=== PATIENT | male | born 1955 | race Caucasian/White ===

== ENCOUNTER → 2017-04-10 | Outpatient (CLI) | payer MEDICARE ==
[~2017-04-10] MED LIST: CRESTOR20 MG PO; LISINOPRIL-HYDR1 TAB PO; NEURONTIN600 MG PO; OXYCODONE HYDRO10 M2 PO; TOPROL XL 100M100 MG PO; VALIUM 5MG TABLE5 MG PO
[2017-04-10 16:55] LABS: AMPHETAMINES/METAMPHETAMINES NEGATIVE ng/mL (<1000)
== END ==
LOC: LAB 16:24
PROVIDERS: Emergency Medicine
DX: Z79.899 Other long term (current) drug therapy (principal)

== ENCOUNTER → 2017-05-15 | Outpatient (CLI) | payer MEDICARE ==
--- NOTE | 2017-05-17 16:24 | RADIOLOGY REPORT PS360 ---
History and Indications: Coronary artery disease, previous bypass surgery, hypertension, hyperlipidemia, tobacco use, family history and shortness of breath Procedure: Patient exercised on Jay protocol 7 minutes, resting heart rate was 52 bpm, resting blood pressure 158/76, with exercise maximum heart rate achieved was 108 bpm, which is equal to 69% of the maximum predicted heart rate and a blood pressure was 225/94. Test was started due to shortness of breath, patient denied any complained of chest pain. Patient has adequate exercise capacity achieved 7.7mets of workload on treadmill, the blood pressure response to exercise was hypertensive. Electrocardiogram: Resting electrocardiogram showed sinus bradycardia rightward axis, with exercise there is less than 1.[address] segment depression noted from the baseline EKG. The EKG portion of the exercise Myoview is nondiagnostic as patient did not achieve the target heart rate. Cardiac stress and resting SPECT images: Cardiac stress and resting SPECT images were obtained using technetium 99 Myoview 10.5 mCi at rest and 32.0 mCi at stress, gated SPECT further analysis of segmental wall motion and calculation of the ejection fraction also done. Cardiac stress and rest images show decreased tracer activity in the anteroseptal and inferolateral wall which improves on the resting images suggestive of reversible ischemia. Computer derived ejection fraction is 61% with no obvious regional wall motion abnormality, right ventricle is mildly enlarged with normal contractility. Conclusion: 1. The EKG portion of the exercise Myoview is nondiagnostic as patient did not achieve the target heart rate, patient has adequate exercise capacity achieved 7.7mets of workload on treadmill, the blood pressure response to exercise was hypertensive. The test was stopped due to shortness of breath, patient denied any complained of chest pain. 2. Scintigraphic evidence of mild reversible ischemia involving the anteroseptal and inferolateral wall. Computer derived ejection fraction is extremely 61% with no obvious regional wall motion abnormality, right ventricle is mildly enlarged with normal contractility. 3. Abnormal exercise Myoview study.
== END ==
LOC: RAD 04-25 06:30
DX: R06.02 Shortness of breath (principal)
CPT/HCPCS: A9502

== ENCOUNTER → 2017-05-29 | Outpatient (CLI) | payer MEDICARE ==
[2017-05-29 08:54] LABS: LYMPH # 3.8 K/mm3 (0.7-4.5)
[2017-05-29 08:58] LABS: BUN 18 mg/dL (7-18); GFR (ESTIMATED) 98 ML/MIN (>60)
--- NOTE | 2017-05-29 14:10 | RADIOLOGY REPORT PS360 ---
CARDIAC CATHETERIZATION DATE OF CATHETERIZATION:05/29/2017 11:00 AM PROCEDURES: 1. Left heart catheterization 2. Left ventriculogram 3. Selective coronary angiogram 4. Selective engagement left internal mammary artery to the LAD 5. Selective engagement of the saphenous vein graft to the right coronary artery 6. Selective engagement of the saphenous vein graft to the circumflex artery INDICATION FOR TEST: 1. Coronary artery disease 2. Coronary artery bypass surgery 3. Angina following bypass surgery 4. Abnormal Myoview Informed consent was obtained prior to the procedure. COMPLICATIONS: None ESTIMATED BLOOD LOSS: Less than 10 ml. TECHNIQUE: One percent lidocaine was used to anesthetize the right groin. The right femoral artery was accessed via the Seldinger technique and a 5 [place] sheath. The right femoral artery. A JL 43 DRC AR-2 NORTH guiding catheter and left coronary bypass catheter were used to perform left heart catheterization and left ventriculogram and selective coronary angiogram. The various catheters were used to selectively intubate the 2 vein grafts and left internal mammary artery to the procedure the sheath was removed good hemostasis was achieved using annual pressure patient transferred the postop holding area in stable condition ANGIOGRAPHIC RESULTS: 1. The left main artery has an ostial and distal 10% stenosis 2. The left anterior descending artery proximally has 30% stenosis and then occluded after a medium first diagonal artery. The diagonal artery has 40% mid vessel stenosis 3. The circumflex artery is proximally occluded with the distal obtuse marginal arteries filling via collaterals from the diagonal artery 4. The right coronary artery dominant and proximally occluded 5. The CARTER ventriculogram reveals normal 65% 6. The left ventricular end-diastolic pressure 30 mmHg 7. 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 The remaining LAD appears to be free of disease 8. The saphenous vein graft to the posterior ascending artery is widely patent 9. The saphenous vein graft to the circumflex artery is ostially occluded IMPRESSION: 1. Severe [facility] three-vessel coronary disease as described above 2. 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 Patent saphenous vein graft to the right coronary artery 4. Chronically occluded circumflex artery with the chronically occluded saphenous vein graft with the [facility] circumflex artery filling via left to right collaterals from the first diagonal artery 5. Normal ejection fraction 6. Moderate to severely elevated LVEDP PLAN: 1. Diuresis in order to decrease LVEDP 2. I would show these films to [facility] and see if they believe patient would be a good candidate for coiling of the fistula going into the pulmonary artery. Patient does have an abnormal Myoview in the distribution of the NORTH to the LAD and I do suspect there is significantly ostial. 3. Continue medical management
[2017-05-29 14:52] VITALS: BP 159/70
--- NOTE | 2017-05-29 19:44 | RADIOLOGY REPORT PS360 ---
PROCEDURE: 2-D M-mode and color Doppler study INDICATIONS FOR THE TEST: Chest pain X COPD Heart Murmur Tobacco SmokingX Palpitations Fatigue Syncope Edema HypertensionXDiabetes Mellitus Rheumatic Fever SOBXDOE Obesity HyperlipidemiaX Family History HD Additional History CAD,CABG PATIENT INFORMATION HEIGHT: 70 WEIGHT:220 GENDER: Male B/P:175/88 2-D/M-MODE INTERPRETATION: 2-D MEASUREMENTS OBSERVED VALUES IN CMS Right Ventricular Dimension (RVDd) 2.0 Interventricular Septum (Thickness)(IVsd) 1.2 Left Ventricular Internal Dimensions(LVIDd) 5.7 Left Ventricular Posterior Wall (Thickness)(LVPWd) 1.1 Aortic Root 3.7 Aortic Cusp Separation 2.1 Left Atrial Dimensions (LAD) 4.0 2D 1. Left atrium is mildly enlarged, left ventricle is normal size, there is mild concentric left ventricular hypertrophy, visually estimated ejection fraction of 55% with no obvious regional wall motion abnormality. 2. The right atrium and right ventricle are normal size and contractility. 3. The aortic valve is minimally thickened and fibrosed. 4. The mitral and tricuspid valve leaflets are minimally thickened. 5. The pulmonic valve is poorly visualized. 6. No significant pericardial effusion noted. DOPPLER INTERROGATION: Doppler interrogation of the aortic, mitral and tricuspid valvular presence of mild mitral and tricuspid regurgitation, tricuspid and jet velocity insufficient for calculation of the right ventricular systolic pressure, grade 1 diastolic dysfunction seen with tissue Doppler evidence of raised left atrial pressure. CONCLUSION: 1. Mildly left atrium, normal left ventricular size, mild concentric left ventricular hypertrophy, visually estimated ejection fraction 55% with no obvious regional wall motion abnormality, grade 1 diastolic dysfunction seen with tissue Doppler evidence of raised left atrial pressure. 2. Mild mitral and tricuspid regurgitation. 3. No significant pericardial effusion noted.
== END ==
LOC: CATHLAB 07:46 → RT 07:46
PROVIDERS: Internal Medicine
PROC: B2111ZZ Fluoroscopy of Multiple Coronary Arteries using Low Osmolar Contrast (ICD-10-PCS; 2017-05-29)
PROC: B2151ZZ Fluoroscopy of Left Heart using Low Osmolar Contrast (ICD-10-PCS; 2017-05-29)
PROC: 4A023N7 Measurement of Cardiac Sampling and Pressure, Left Heart, Percutaneous Approach (ICD-10-PCS; principal; 2017-05-29 09:00)
DX: R94.39 Abnormal result of other cardiovascular function study (principal); I25.810 Atherosclerosis of coronary artery bypass graft(s) without angina pectoris; E55.9 Vitamin D deficiency, unspecified; E78.5 Hyperlipidemia, unspecified; E29.1 Testicular hypofunction; I10 Essential (primary) hypertension; Z72.0 Tobacco use
CPT/HCPCS: C1725; C1769; C1894; J1644; Q9967

== ENCOUNTER → 2017-07-19 | Outpatient (CLI) | payer MEDICARE ==
[2017-07-19 14:32] LABS: AMPHETAMINES/METAMPHETAMINES NEGATIVE ng/mL (<1000)
== END ==
LOC: LAB 11:53
PROVIDERS: Emergency Medicine
DX: Z79.899 Other long term (current) drug therapy (principal)